=== PATIENT | male | born 1990 | race African-American/Black ===

== ENCOUNTER 2019-11-07 20:14 | Emergency (ER) | payer SELFPAY ==
[2019-11-07] MEDS ORDERED: Lorazepam 2 MG/ML VIAL ONE (20:25)
[2019-11-07 20:50] LABS: #Basophils 0.1 thou/uL (0.0-0.2); #Eosinphils 0.1 thou/uL (0.0-0.7); #Lymphocytes 1.7 thou/uL (1.20-3.40); #Monocytes 0.6 thou/uL (0.11-0.59); %Basophils 0.8 % (0.0-1.0); %Lymphocytes 23.2 % (21.0-51.0); %Monocytes 7.7 % (0.0-10.0); %Neutrophils 67.3 % (42.0-75.0); Mean Corpuscular HGB CONC 32.7 g/dL (32.0-36.0); Mean Corpuscular Hemoglobin 27.6 pg (27.0-31.0); Mean Corpuscular Volume 84.3 fL (78.0-98.0); Mean Platelet Volume 7.1 fL (7.4-10.4); Platelet Count 195 thou/uL (130-400); Red Blood Cell (RBC) Count 4.71 mill/uL (4.70-6.10); White Blood Cell (WBC) Count 7.5 thou/uL (4.8-10.8)
--- NOTE | 2019-11-07 20:52 | CT ---
CT BRAIN NONCONTRAST: DATE: 11-07-2019 HISTORY: 29-year-old male status post seizure. FINDINGS: The ventricles are normal in size and configuration. There is no midline shift or any other mass eff ect. There is no evidence of acute intracranial hemorrhage, large cortical infarct, or extraaxial fl uid collection. The mckeon matter /white matter differentiation is maintained. The calvarium is intac t. The tympanomastoid cavities, and the upper portions of the paranasal sinuses included in these im ages, are grossly clear. IMPRESSION: Normal. gillian POS: JIN
[2019-11-07 21:12] LABS: ALT (SGPT) 21 U/L (8-55); AST (SGOT) 34 U/L (5-34); Acetaminophen Less than 6.0 mcg/mL (10.0-30.0); Albumin 3.8 g/dL (3.5-5.0); Alcohol 205 mg/dL (Less than 10); Alkaline Phosphatase 57 U/L (40-110); Anion Gap 16 mmol/L (10-20); BUN (Urea Nitrogen) 13 mg/dL (8.9-20.6); Bilirubin, Total 0.3 mg/dL (0.2-1.2); CK (CPK) 762 U/L (30-200); Calc. Creatinine Clearance 0 mL/min (70-130); Carbon Dioxide 19 mmol/L (22-29); Chloride 108 mmol/L (98-107); Estimated GFR-MDRD 72; Globulin 2.5 g/dL (2.4-3.5); Glucose 94 mg/dL (70-105); Potassium 3.4 mmol/L (3.5-5.1); Protein, Total 6.3 g/dL (6.0-8.3); Salicylate Less than 8.0 mg/dL (15.0-30.0); Sodium 140 mmol/L (136-145)
--- NOTE | 2019-11-17 16:50 | EKG ---
Test Reason : Blood Pressure : / mmHG Vent. Rate : 098 BPM Atrial Rate : 098 BPM P-R Int : 152 ms QRS Dur : 100 ms QT Int : 362 ms P-R-T Axes : 071 067 042 degrees QTc Int : 462 ms Normal sinus rhythm Normal ECG Confirmed by ALAYNA RAINEY MD ([id number]), acquisition editor SAMUEL VELA ([id number]) on 11/17/2019 4:49:36 PM Referred By: Confirmed By:ALAYNA RAINEY MD
== END 2019-11-08 00:24 | disposition home or self-care (01) ==
LOC: ERS 20:14
DX: R45.1 Restlessness and agitation (principal); F10.10 Alcohol abuse, uncomplicated
CPT/HCPCS: 36415; 70450; 80053; 80307; 82140; 82550; 85025; 93005; 96361; 96374; J2060